=== PATIENT | male | born 1980 | race Caucasian/White ===

== ENCOUNTER 2019-03-12 07:30 | Emergency (ER) | payer SELFPAY ==
[2019-03-12 07:53] VITALS: BP 140/100
--- NOTE | 2019-03-12 08:07 | UC ---
Skin Complaint HPI - HPI Summary HPI Summary: Patient is a 38-year-old male who presents to the urgent care with a chief complaint of swelling, redness, and the area of dark discoloration in the right foot after he had a dog bite last Friday. He did not seek for any medical attention at that point. He reports that he clean the wound and he started taking amoxicillin. He reports that the wound is getting worse and the redness is going up of the ankle and the pain is getting worse therefore he decided to come to the urgent care. He reports that the dog is from his friend and his up- to-date on vaccinations. He has no other complaints. - History of Current Complaint Chief Complaint: UCBiteInjury Time Seen by Provider: 03/12/19 07:42 Stated Complaint: DOG BITE Hx Obtained From: Patient Onset/Duration: Worse Since Skin Exposure Onset/Duration: Days Ago Onset Severity: Moderate Current Severity: Moderate Pain Intensity: 5 - Allergy/Home Medications Allergies/Adverse Reactions: Allergies Allergy/AdvReac Type Severity Reaction Status Date / Time No Known Allergies Allergy Verified 03/12/19 07:50 Home Medications: Home Medications Amoxicillin PO (*) [Amoxicillin 500 MG CAP*] 500 mg PO Q12H 03/12/19 [History Confirmed 03/12/19] PMH/Surg Hx/FS Hx/Imm Hx Previously Healthy: Yes - Surgical History Surgical History: None - Family History Known Family History: Positive: Non-Contributory - Social History Alcohol Use: Rare Substance Use Type: None Smoking Status (MU): Never Smoked Tobacco - Immunization History Most Recent Influenza Vaccination: No Most Recent Tetanus Shot: unknown Review of Systems All Other Systems Reviewed And Are Negative: Yes Is Patient Immunocompromised?: No - Comments Additional Review of Systems Comments: Constitutional: No Weight Change, No Fever, No Chills, No Night Sweats, No Fatigue, No Malaise ENT/Mouth: No Hearing Changes, No Ear Pain, No Nasal Congestion, No Sinus Pain , No Hoarseness, No sore throat, No Rhinorrhea, No Swallowing Difficulty Eyes: No Eye Pain, No Swelling, No Redness, No Foreign Body, No Discharge, No Vision Changes Cardiovascular: No Chest Pain, No SOB, No PND, No Dyspnea on Exertion, No Orthopnea, No Claudication, No Edema, No Palpitations Respiratory: No Cough, No Sputum, No Wheezing, No Smoke Exposure, No Dyspnea Gastrointestinal: No Nausea, No Vomiting, No Diarrhea, No Constipation, No Pain , No Heartburn, No Anorexia, No Dysphagia, No Hematochezia, No Melena, No Flatulence, No Jaundice Genitourinary: No Dysmenorrhea, No Dyspareunia, No Dysuria, No Urinary Frequency, No Hematuria, No Urinary Incontinence, No Urgency, No Flank Pain, No Urinary Flow Changes, No Hesitancy Musculoskeletal: No Arthralgias, No Myalgias, No Joint Swelling, No Joint Stiffness, No Back Pain, No Neck Pain, No Injury History Skin: positive redness, swelling and pain in left foot Physical Exam - Summary Physical Exam Summary: VITAL SIGNS: Reviewed. GENERAL: Patient is a well developed and nourished male who is lying comfortable in the stretcher. Patient is not in any acute respiratory distress. HEAD AND FACE: No signs of trauma. No ecchymosis, hematomas or skull depressions. No sinus tenderness. EYES: PERRLA, EOMI x 2, No injected conjunctiva, no nystagmus. EARS: Hearing grossly intact. Ear canals and tympanic membranes are within normal limits. MOUTH: Oropharynx within normal limits. NECK: Supple, trachea is midline, no adenopathy, no JVD, no carotid bruit, no c- spine tenderness, neck with full ROM. CHEST: Symmetric, no tenderness at palpation LUNGS: Clear to auscultation bilaterally. No wheezing or crackles. CVS: Regular rate and rhythm, S1 and S2 present, no murmurs or gallops appreciated. ABDOMEN: Soft, non-tender. No signs of distention. No rebound no guarding, and no masses palpated. Bowel sounds are normal. EXTREMITIES: FROM in all major joints, no edema, no cyanosis or clubbing. NEURO: Alert and oriented x 3. No acute neurological deficits. Speech is normal and follows commands. SKIN: Positive erythema, swelling and black discoloration in the medial aspect of the left foot Triage Information Reviewed: Yes Appearance: Well-Appearing, No Pain Distress, Well-Nourished Vital Signs: Initial Vital Signs Temp 98.8 F 03/12/19 07:39 Pulse 97 03/12/19 07:39 Resp 16 03/12/19 07:39 BP 140/100 03/12/19 07:39 Pulse Ox 100 03/12/19 07:39 Course/Dx - Course Course Of Treatment: In the urgent care course the patient has cellulitis with small area of dark discoloration, swelling and tenderness. The patient already taking antibiotics and not improving. Therefore I recommend for the patient to go to the emergency department for further assessment. The patient understands and agrees. The patient declined ambulance transfer. - Diagnoses Provider Diagnosis: Cellulitis Discharge - Sign-Out/Discharge Documenting (check all that apply): Patient Departure All imaging exams completed and their final reports reviewed: No Studies - Discharge Plan Condition: Stable Disposition: HOME-RECOMMEND TO ED Patient Education Materials: Animal Bite (ED), Cellulitis (ED) Referrals: No Primary Care Phys,NOPCP [Primary Care Provider] - Additional Instructions: Patient will be discharged to the ED for further assessment. Patient declined ambulance - Billing Disposition and Condition Condition: STABLE Disposition: Home-Recommend to ED
== END 2019-03-12 08:00 | disposition home health service (06) ==
LOC: UCEAST 07:30
DX: L03.115 Cellulitis of right lower limb (principal)
CPT/HCPCS: 99212; G0463

== ENCOUNTER 2019-03-12 08:22 | Emergency (ER) | payer SELFPAY ==
[2019-03-12] MEDS ORDERED: Piperacillin/Tazobac ADVAN(*) 3.375 GM in NS 0.9% 100 ML* 100 ML IVPB ONE (08:35)
--- NOTE | 2019-03-12 08:48 | ED ---
Lower Extremity - HPI Summary HPI Summary: This patient is a 38 year old M presenting to ED sent from with a chief complaint of dog bite on interior side of right foot on 03/06/19 at 2030. Since then, the foot has become swollen, odorous starting 03/10/19, and the middle of the wound appears black/harmon. Patient took unprescribed amoxicillin after the bite. The patient rates the pain 0/10 in severity. Symptoms aggravated by nothing. Symptoms alleviated by nothing. Patient denies fever and foot pain when ambulating. No PMHx of DM, HTN, COPD, asthma. FHx reviewed and non- contributory. Patient rarely drinks alcohol, does not use substances, or smoke tobacco. Patient is unsure of his last tetanus. - History of Current Complaint Chief Complaint: EDAnimalBite Stated Complaint: DOG BITE PER PT Time Seen by Provider: 03/12/19 08:36 Hx Obtained From: Patient Mechanism Of Injury: Other - Dog bite Onset of Pain: Days - Bite occurred 03/06/19 Onset/Duration: Worse Since - Odor began 03/10/19 Severity Currently: None Pain Intensity: 0 Pain Scale Used: 0-10 Numeric Timing: Constant, Lasting Days - Since 03/06/19 Location: Is Discrete @ - Instep of right foot Associated Signs And Symptoms: Positive: Swelling, Other - Odor. Negative: Fever Aggravating Factor(s): Nothing - Negative for ambulation Alleviating Factor(s): Nothing Able to Bear Weight: Yes - Allergies/Home Medications Allergies/Adverse Reactions: Allergies Allergy/AdvReac Type Severity Reaction Status Date / Time No Known Allergies Allergy Verified 03/12/19 08:41 PMH/Surg Hx/FS Hx/Imm Hx Endocrine/Hematology History: Denies: Hx Diabetes, Hx Thyroid Disease Cardiovascular History: Denies: Hx Hypertension Respiratory History: Denies: Hx Asthma, Hx Chronic Obstructive Pulmonary Disease (COPD) GI History: Denies: Hx Ulcer - Cancer History Hx Radiation Therapy: No - Surgical History Surgery Procedure, Year, and Place: None Infectious Disease History: No Infectious Disease History: Denies: Hx Clostridium Difficile, Hx Hepatitis, Hx Human Immunodeficiency Virus (HIV), Hx of Known/Suspected MRSA, Hx Shingles, Hx Tuberculosis, Hx Known/ Suspected VRE, Hx Known/Suspected VRSA, History Other Infectious Disease, Traveled Outside the [place] in Last 30 Days - Family History Known Family History: Positive: Non-Contributory - Social History Occupation: Employed Full-time Alcohol Use: Rare Hx Substance Use: No Substance Use Type: Reports: None Hx Tobacco Use: No Smoking Status (MU): Never Smoked Tobacco Review of Systems Negative: Fever Skin: Other - Dog bite to right foot, swelling and odorous All Other Systems Reviewed And Are Negative: Yes Physical Exam - Summary Physical Exam Summary: Appearance: well appearing, no pain distress Skin: dog bite to instep of right foot. Laceration with dark and necrotic edge. Some odor. Head/face: normal Eyes: EOMI, MARY ENT: mucous membranes moist Neck: supple, non-tender Respiratory: CTA, breath sounds present Cardiovascular: RRR, pulses symmetrical Abdomen: non-tender, soft Bowel Sounds: present Musculoskeletal: normal, strength/ROM intact Neuro: normal, sensory motor intact, A&Ox3 Triage Information Reviewed: Yes Vital Signs On Initial Exam: Initial Vitals Temp Pulse Resp BP Pulse Ox 98.3 F 100 16 138/108 97 03/12/19 08:25 03/12/19 08:25 03/12/19 08:25 03/12/19 08:25 03/12/19 08:25 Vital Signs Reviewed: Yes Procedures - Procedure Summary Procedure Summary: Wound debridement: The patient was verbally consented and a timeout was performed. Patient was sitting with his foot on the bed. The wound in the instep of the right foot was anesthetized with total of 10 cc of lidocaine 1%. The necrotic areas of the wound were debrided with 15 blade scalpel and sharp scissors. All necrotic tissue was removed. Final wound measures 3 cm x 2 cm in size. It was dressed with a wet-to-dry 2 x 2 gauze and secured with Kerlix wrap. He was placed in a postop shoe. He tolerated this well without complications. Diagnostics - Vital Signs Vital Signs Temp Pulse Resp BP Pulse Ox 03/12/19 08:25 98.3 F 100 16 138/108 97 - Laboratory Result Diagrams: 03/12/19 08:50 03/12/19 08:50 Lab Statement: Any lab studies that have been ordered have been reviewed, and results considered in the medical decision making process. Lower Extremity Course/Dx - Course Course Of Treatment: Patient with necrotic wound that he attempted to care for himself at home after dog bite. This was malodorous and had to be debrided. A wound culture was obtained. There is no significant cellulitis of the leg and foot. IV Zosyn given here and he'll be transitioned to oral Augmentin and Cipro to cover Pseudomonas. A wound care appointment was made for him on Friday and he will do wet-to-dry dressings until then. - Diagnoses Differential Diagnosis/HQI/PQRI: Positive: Other - Necrotic wound, abscess, cellulitis Provider Diagnoses: Dog bite of right foot Discharge - Sign-Out/Discharge Documenting (check all that apply): Patient Departure - Discharge Patient Received Moderate/Deep Sedation with Procedure: No - Discharge Plan Condition: Improved Disposition: HOME Prescriptions: Amoxicillin/Clavulanate TAB* [Augmentin TAB 875*] 875 mg PO BID #20 tab Ciprofloxacin TAB* [Cipro 500 MG TAB*] 500 mg PO BID #14 tab Patient Education Materials: Animal Bite (ED) Referrals: Isra Fay MD [Medical Doctor] - Additional Instructions: Follow up on Friday at 9:15am. Here at hospital off [facility]. Keep area clean and dry. Do wet-to-dry dressings twice daily until seen. You may clean with soap and water. No hot tubs or pools. Wear the postop shoe provided. Return with fever, drainage from the area, blackness to the wound or other concerns. - Billing Disposition and Condition Condition: IMPROVED Disposition: Home - Attestation Statements Document Initiated by Lali: Yes Documenting Scribe: Wilber Pineda Provider For Whom Lali is Documenting (Include Credential): Garcia Holder MD Scribe Attestation: Wilber Cochran, scribed for Garcia Holder MD on 03/12/19 at 1117. Scribe Documentation Reviewed: Yes Provider Attestation: The documentation as recorded by the Wilber holt accurately reflects the service I personally performed and the decisions made by me, Garcia Holder MD Status of Scribe Document: Viewed
[2019-03-12] MEDS ORDERED: Tetan/Diph/Pertus SYR(Tdap)* 0.5 ML SYR(BOOSTRIX) use SYR IM ONE (08:50)
[2019-03-12 08:58] LABS: ABS Eosinophils 0.1 10^3/ul (0-0.6); ABS Monocytes 0.5 10^3/ul (0-0.8); ABS Neutrophils 4.6 10^3/ul (1.5-7.7); Eosinophil % 1.2 %; Hematocrit 43 % (42-52); Hemoglobin 15.1 g/dL (14.0-18.0); Lymphocyte % 27.4 %; Mean Corpuscular HGB Conc 35 g/dL (31-36); Mean Corpuscular Hemoglobin 29 pg (27-31); Mean Corpuscular Volume 84 fL (80-94); Platelet Count 181 10^3/uL (150-450); Red Blood Count 5.13 10^6 /uL (4.18-5.48); Red Cell Distribution Width 13 % (10.5-15); White Blood Count 7.2 10^3/uL (3.5-10.8)
[2019-03-12] MEDS ORDERED: Lidocaine 1% INJ* 10 MG/ML 30 ML SDV ONE (09:05)
[2019-03-12 09:19] LABS: BUN/Creatinine Ratio 7.6 (8-20); Calcium 9.7 mg/dL (8.6-10.3); EGFR African American 73.3 (>60); EGFR Non-African American 60.6 (>60); Potassium 3.9 mmol/L (3.5-5.0)
[2019-03-12] MEDS ORDERED: Lidocaine 1% INJ* 10 MG/ML 30 ML SDV INJ ONE (09:22)
[2019-03-12 09:48] VITALS: BP 158/102
--- NOTE | 2019-03-15 05:37 | PN ---
Progress Note - Progress Note Date of Service: 03/12/19 Note: Pt. seen 03/12 with dog bite wound and treated with augmentin and cipro. Preliminary wound culture growing pasteurella, strep. and pseudomonas. Pending sensitivity. No change in treatment needed at this time.
== END 2019-03-12 09:47 | disposition home or self-care (01) ==
LOC: ED 08:22
DX: S91.351A Open bite, right foot, initial encounter (principal); R60.0 Localized edema; W54.0XXA Bitten by dog, initial encounter; Y92.9 Unspecified place or not applicable
CPT/HCPCS: 36415; 80048; 85025; 87070; 87077; 87186; 87205; 87640; 87641; 90471; 90715; 96365; 99283; J2543